=== PATIENT | female | born 1985 | race Caucasian/White ===

== ENCOUNTER 2016-11-09 14:43 | Emergency (ER) | payer OTHER ==
[2016-11-09 15:34] VITALS: BP 129/91
[2016-11-09] MEDS ORDERED: Sodium Chloride 0.9% 10 ML Syringe FLUSH PRN (15:54)
[2016-11-09] MEDS ORDERED: diphenhydrAMINE 50 MG/ML SDV IVPUSH ONE (15:54)
[2016-11-09] MEDS ORDERED: HYDROmorphone 0.5 MG/0.5 ML Syringe IVPUSH ONE (15:54)
[2016-11-09] MEDS ORDERED: Metoclopramide 10 MG/2 ML SDV IVPUSH ONE (15:54)
[2016-11-09] MEDS ORDERED: Sodium Chloride 0.9% 1,000 ML IV SCH (16:00)
--- NOTE | 2016-11-09 17:52 | EDM.PDOC ---
ED HPI HEADACHE COMPLAINT - General Chief Complaint: Headache Stated Complaint: MIGRANE Time Seen by Provider: 11/09/16 15:51 Source of Information: Reports: Patient History Limitations: Reports: No limitations - History of Present Illness INITIAL COMMENTS - FREE TEXT/NARRATIVE: The patient presents with a headache that started this morning when she woke up. She tried some tylenol and it did not help. She has had headaches like this before. But the tylenol is not helping. She has some nausea but no vomiting. She is trying to get . She is unsure if she is now. She has no numbness or weakness. She has no blurred vision or double vision. Timing/Duration: Reports: hour(s): Location: Reports: frontal Quality: Reports: squeezing Severity: Reports: severe Associated Symptoms: Reports: photophobia. 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, Musculoskeletal History: Reports: Other (see below) Other Musculoskeletal History: Ligament repair in ankle Psychiatric History: Reports: Depression Social & Family History - Tobacco Use Smoking Status *Q: Never Smoker - Caffeine Use Caffeine Use: Reports: Coffee - Recreational Drug Use Recreational Drug Use: No - Living Situation & Occupation Living situation: Reports: Occupation: employed ED ROS GENERAL - Review of Systems Review Of Systems: See Below Constitutional: Reports: no symptoms HEENT: Reports: No symptoms Respiratory: Reports: No Symptoms Cardiovascular: Reports: No symptoms Endocrine: Reports: no symptoms GI/Abdominal: Reports: Nausea. Denies: Abdominal pain, Vomiting : Reports: no symptoms Musculoskeletal: Reports: no symptoms Skin: Reports: no symptoms Neurological: Reports: Headache - Physical Exam Exam: See Below Exam Limited By: No limitations General Appearance: alert, no apparent distress Ears: normal external exam Nose: normal inspection Head Exam: atraumatic, normocephalic Neck: normal inspection Respiratory/Chest: no respiratory distress, lungs clear, normal breath sounds Cardiovascular: regular rate, rhythm, no edema, no murmur GI/Abdominal: soft, non tender, no organomegaly, no mass Neuro Exam (Abbreviated): alert, oriented, no motor/sensory deficits Course - Vital Signs Last Recorded V/S: Last Vital Signs Temp 97.0 F 11/09/16 15:32 Pulse 73 11/09/16 15:32 Resp 20 11/09/16 15:32 BP 129/91 H 11/09/16 15:32 Pulse Ox 98 11/09/16 15:32 - Orders/Labs/Meds Orders: Active Orders 24 hr Category Date Time Status Peripheral IV Care [RC] . DIRECTED Care 11/09/16 15:54 Active Sodium Chloride 0.9% [Normal Saline] 1,000 ml Med 11/09/16 16:00 Active IV ASDIRECTED Sodium Chloride 0.9% [Saline Flush] Med 11/09/16 15:54 Active 10 ml FLUSH ASDIRECTED PRN Peripheral IV Insertion Adult [OM.PC] Routine Oth 11/09/16 15:54 Ordered Medication Orders Sodium Chloride (Normal Saline) 1,000 mls @ 150 mls/hr IV ASDIRECTED EBONY Last Admin: 11/09/16 16:34 Dose: 150 mls/hr Sodium Chloride (Saline Flush) 10 ml FLUSH ASDIRECTED PRN PRN Reason: Keep Vein Open Last Admin: 11/09/16 16:36 Dose: 10 ml Labs: Laboratory Tests 11/09/16 Range/Units 16:35 HCG, Qual Negative (NEGATIVE) Meds: Medications Generic Name Dose Route Start Last Admin Trade Name Freq PRN Reason Stop Dose Admin Sodium Chloride 1,000 mls @ 150 mls/hr 11/09/16 16:00 11/09/16 16:34 Normal Saline IV 150 mls/hr ASDIRECTED EBONY Administration Sodium Chloride 10 ml 11/09/16 15:54 11/09/16 16:36 Saline Flush FLUSH 10 ml ASDIRECTED PRN Administration Keep Vein Open Discontinued Medications Generic Name Dose Route Start Last Admin Trade Name Freq PRN Reason Stop Dose Admin Diphenhydramine HCl 50 mg 11/09/16 15:54 11/09/16 16:37 Benadryl IVPUSH 11/09/16 15:55 50 mg ONETIME ONE Administration Hydromorphone HCl 0.5 mg 11/09/16 15:54 11/09/16 16:38 Dilaudid IVPUSH 11/09/16 15:55 0.5 mg ONETIME ONE Administration Metoclopramide HCl 10 mg 11/09/16 15:54 11/09/16 16:35 Reglan IVPUSH 11/09/16 15:55 10 mg ONETIME ONE Administration - Re-Assessments/Exams Free Text/Narrative Re-Assessment/Exam: 11/09/16 17:50 I ordered an IV NS, reglan 10mg IV and some benadryl. Her HCG is negative. She feels better and she would like to go now. Departure - Departure Time of Disposition: 17:55 Disposition: Home, Self-Care 01 Condition: good Clinical Impression: Migraine Referrals: Keri Yi DO [Primary Care Provider] - Forms: ED Department Discharge Additional Instructions: Go home to a quit, dark room and try to get some sleep. Please return if you are worse. - My Orders Last 24 Hours: My Active Orders 11/09/16 15:54 Peripheral IV Care [RC] . DIRECTED Sodium Chloride 0.9% [Saline Flush] 10 ml FLUSH ASDIRECTED PRN Peripheral IV Insertion Adult [OM.PC] Routine 11/09/16 16:00 Sodium Chloride 0.9% [Normal Saline] 1,000 ml IV ASDIRECTED - Assessment/Plan Last 24 Hours: My Active Orders 11/09/16 15:54 Peripheral IV Care [RC] . DIRECTED Sodium Chloride 0.9% [Saline Flush] 10 ml FLUSH ASDIRECTED PRN Peripheral IV Insertion Adult [OM.PC] Routine 11/09/16 16:00 Sodium Chloride 0.9% [Normal Saline] 1,000 ml IV ASDIRECTED
== END 2016-11-09 18:00 | disposition home or self-care (01) ==
LOC: JD.ED 14:43
DX: G43.909 Migraine, unspecified, not intractable, without status migrainosus (principal); F32.9 Major depressive disorder, single episode, unspecified; Z88.2 Allergy status to sulfonamides
CPT/HCPCS: 36415; 84703; 96361; 96374; 96375; 99283; J1170; J1200; J2765; J7040; J7050; 99284

== ENCOUNTER 2017-04-27 18:42 | Emergency (ER) | payer OTHER ==
[2017-04-27 18:55] VITALS: BP 116/70
--- NOTE | 2017-04-27 19:29 | EDM.PDOC ---
ED HPI GENERAL MEDICAL PROBLEM - General Chief Complaint: SENIOR SUSTAINABILITY CONSULTANT Problem Stated Complaint: 11 1/2 WKS /CONTRACTIONS Time Seen by Provider: 04/27/17 18:52 Source of Information: Reports: Patient, Family History Limitations: Reports: No Limitations - History of Present Illness INITIAL COMMENTS - FREE TEXT/NARRATIVE: The patient presents with cramping. She is at 11 weeks 4 days gestation. This cramping started this evening and at one time they were 5 minutes apart. The have gotten further apart since she has been here. Her OB doctor is Dr Chand. She has had 2 ultrasounds so far in her . She denies any spotting, bleeding or discharge. She has some nausea but that is nothing new for this . She has been eating and drinking okay. She denies any dysuria. She has come chills but no fever. Onset: Gradual Duration: Hour(s): Location: Reports: Abdomen, Pelvis Quality: Reports: Other (Cramping) Severity: Moderate Improves with: Reports: None Worsens with: Reports: None Associated Symptoms: Reports: Fever/Chills, Nausea/Vomiting. 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, Musculoskeletal History: Reports: Other (See Below) Other Musculoskeletal History: Ligament repair in ankle Psychiatric History: Reports: Depression Social & Family History - Tobacco Use Smoking Status *Q: Never Smoker - Caffeine Use Caffeine Use: Reports: None - Recreational Drug Use Recreational Drug Use: No - Living Situation & Occupation Living situation: Reports: Occupation: Employed ED ROS GENERAL - Review of Systems Review Of Systems: See Below Constitutional: Reports: Chills HEENT: Reports: No Symptoms Respiratory: Reports: No Symptoms Cardiovascular: Reports: No Symptoms Endocrine: Reports: No Symptoms GI/Abdominal: Reports: Abdominal Pain, Nausea. Denies: Diarrhea, Vomiting : Reports: No Symptoms Musculoskeletal: Reports: No Symptoms ED EXAM - Physical Exam Exam: See Below Exam Limited By: No Limitations General Appearance: Alert, No Apparent Distress Ears: Normal External Exam Nose: Normal Inspection Head: Atraumatic, Normocephalic Neck: Normal Inspection Respiratory/Chest: No Respiratory Distress, Lungs Clear, Normal Breath Sounds Cardiovascular: Regular Rate, Rhythm, No Edema, No Murmur GI/Abdominal Exam: Soft, No Organomegaly, No Mass, Tender (Mild tenderness to the lower abdomen) Course - Vital Signs Last Recorded V/S: Last Vital Signs Temp 98.5 F 04/27/17 18:52 Pulse 95 04/27/17 18:52 Resp 18 04/27/17 18:52 BP 116/70 04/27/17 18:52 Pulse Ox 100 04/27/17 18:52 - Orders/Labs/Meds Labs: Laboratory Tests 04/27/17 04/27/17 04/27/17 Range/Units 19:30 19:30 19:35 WBC 6.62 (3.98-10.04) K/mm3 RBC 4.04 (3.98-5.22) M/mm3 Hgb 11.9 (11.2-15.7) gm/L Hct 35.9 (34.1-44.9) % MCV 88.9 (79.4-94.8) fl MCH 29.5 (25.6-32.2) pg MCHC 33.1 (32.2-35.5) g/dl RDW Std Deviation 43.3 (36.4-46.3) fL Plt Count 223 (182-369) K/mm3 MPV 9.8 (9.4-12.3) fl Neut % (Auto) 60.6 (34.0-71.1) % Lymph % (Auto) 31.1 (19.3-51.7) % [place] % (Auto) 6.5 (4.7-12.5) % Eos % (Auto) 1.4 (0.7-5.8) Baso % (Auto) 0.2 (0.1-1.2) % Neut # (Auto) 4.02 (1.56-6.13) K/mm3 Lymph # (Auto) 2.06 (1.18-3.74) K/mm3 [place] # (Auto) 0.43 H (0.24-0.36) K/mm3 Eos # (Auto) 0.09 (0.04-0.36) K/mm3 Baso # (Auto) 0.01 (0.01-0.08) K/mm3 Sodium 137 (136-145) mEq/L Potassium 4.0 (3.5-5.1) mEq/L Chloride 104 (98-107) mEq/L Carbon Dioxide 28 (21-32) mEq/L Anion Gap 9.0 (5-15) BUN 12 (7-18) mg/dL Creatinine 0.9 (0.55-1.02) mg/dL Est Cr Clr Drug Dosing TNP Estimated GFR (MDRD) > 60 (>60) mL/min BUN/Creatinine Ratio 13.3 L (14-18) Glucose 110 H (74-106) mg/dL Calcium 9.3 (8.5-10.1) mg/dL Total Bilirubin 0.2 (0.2-1.0) mg/dL AST 18 (15-37) U/L ALT 33 (14-59) U/L Alkaline Phosphatase 49 (46-116) U/L Total Protein 6.5 (6.4-8.2) g/dl Albumin 2.9 L (3.4-5.0) g/dl Globulin 3.6 gm/dL Albumin/Globulin Ratio 0.8 L (1-2) Urine Color Yellow (Yellow) Urine Appearance Clear (Clear) Urine pH 6.0 (5.0-8.0) Ur Specific [place] > or = 1.030 (1.005-1.030) Urine Protein Negative (Negative) Urine Glucose (UA) 2+ H (Negative) Urine Ketones 1+ H (Negative) Urine Occult Blood Negative (Negative) Urine Nitrite Negative (Negative) Urine Bilirubin Negative (Negative) Urine Urobilinogen 1.0 (0.2-1.0) Ur Leukocyte Esterase Trace H (Negative) Urine RBC Not seen (0-5) /hpf Urine WBC 0-5 (0-5) /hpf Ur Epithelial Cells 5-10 H (0-5) /hpf Urine Bacteria Moderate H (FEW) /hpf Urine Mucus Few (FEW) /hpf - Re-Assessments/Exams Free Text/Narrative Re-Assessment/Exam: 04/27/17 19:29 I ordered labs and a UA. I did a bedside US and there was good heart tones at 145 and good movement. 04/27/17 20:10 Her CBC and CMP look good. Her UA shows no UTI. She had a few contractions when she was here. I will have her drink more water and follow up with Dr Chand. Departure - Departure Time of Disposition: 20:15 Disposition: Home, Self-Care 01 Condition: Good Clinical Impression: Abdominal cramping Qualifiers: Weeks of gestation: 11 weeks Qualified Code(s): Z3A.11 - 11 weeks gestation of - Discharge Information Referrals: Misty Chand MD [Primary Care Provider] - Forms: ED Department Discharge Additional Instructions: Drink plenty of water. Please return if you have more cramping or any bleeding. Follow up with Dr Chand next week.
== END 2017-04-27 20:21 | disposition home or self-care (01) ==
LOC: JD.ED 18:42
DX: O99.89 Other specified diseases and conditions complicating pregnancy, childbirth and the puerperium (principal); R10.9 Unspecified abdominal pain; Z88.2 Allergy status to sulfonamides; Z79.899 Other long term (current) drug therapy; Z3A.11 11 weeks gestation of pregnancy
CPT/HCPCS: 36415; 80053; 81001; 85025; 99283; 99284

== ENCOUNTER 2017-11-16 00:58 | Inpatient (IN) | payer OTHER ==
[2017-11-16] MEDS ORDERED: Nalbuphine 20 MG/1 ML Amp IVPUSH PRN (03:19)
[2017-11-16] MEDS ORDERED: Sodium Chloride 0.9% 10 ML Syringe FLUSH PRN (03:19)
[2017-11-16] MEDS ORDERED: Oxytocin/Lactated Ringers 10 UNIT/1,000 ML BAG IV SCH ×2 (03:30→09:15)
[2017-11-16] MEDS ORDERED: Ampicillin 2 GM in Sodium Chloride 0.9% 100 ML IV ONE (04:00)
[2017-11-16] MEDS: Lactated Ringers 1,000 ML IV SCH ×3 (04:40→16:43)
[2017-11-16] MEDS: Ampicillin 1 GM in Sodium Chloride 0.9% 100 ML IV SCH ×3 (07:50→16:48)
[2017-11-16] MEDS ORDERED: Bupivacaine 0.25% 10 ML SDV ONE (09:00)
[2017-11-16] MEDS ORDERED: Oxytocin/Lactated Ringers 10 UNIT/1,000 ML BAG IV ONE (09:11)
--- NOTE | 2017-11-16 10:12 | PCM.LDHP ---
L&D History of Present Illness - General Date of Service: 11/16/17 Admit Problem/Dx: Patient Status Order with Admit Dx/Problem 11/16/17 02:17 Patient Status [ADT] Routine 11/16/17 03:20 Patient Status [ADT] Routine Admission Diagnosis/Problem Admission Diagnosis/Problem Source of Information: Patient - History of Present Illness Introduction:: 32 year old female at 40w3d here in labor with painful contractions since midnight and cervical change from 1 cm to 3 cm. 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, Musculoskeletal History: Reports: Arthritis, Other (See Below) Other Musculoskeletal History: Ligament repair in ankle 2006 Psychiatric History: Reports: Anxiety, Depression - Infectious Disease History Infectious Disease History: Reports: Influenza - Past Surgical History HEENT Surgical History: Reports: None Social & Family History - Family History Family Medical History: Noncontributory - Tobacco Use Smoking Status *Q: Former Smoker Years of Tobacco use: 10 Packs/Tins Daily: 1 Used Tobacco, but Quit: Yes Month/Year Tobacco Last Used: 2009 Second Hand Smoke Exposure: No - Caffeine Use Caffeine Use: Reports: Coffee, Soda, Tea Other Caffeine Use: occasional - Recreational Drug Use Recreational Drug Use: No - Living Situation & Occupation Living situation: Reports: Occupation: Employed H&P Review of Systems - Review of Systems: Review Of Systems: See Below General: Reports: No Symptoms HEENT: Reports: No Symptoms Pulmonary: Reports: No Symptoms Cardiovascular: Reports: No Symptoms Gastrointestinal: Reports: No Symptoms Genitourinary: Reports: No Symptoms Musculoskeletal: Reports: No Symptoms Skin: Reports: No Symptoms Psychiatric: Reports: No Symptoms Neurological: Reports: No Symptoms Hematologic/Lymphatic: Reports: No Symptoms Immunologic: Reports: No Symptoms L&D Exam - Exam Exam: See Below - Vital Signs Vital Signs: Last Vital Signs Temp 36.9 C 11/16/17 02:16 Pulse 95 11/16/17 02:16 Resp 15 11/16/17 02:16 BP 127/83 11/16/17 02:16 Pulse Ox 100 11/16/17 02:16 Weight: 129.274 kg - OB Specific Contraction Intensity: Moderate Movement: Active Heart Rate (FHR) Variability: Moderate (6-25 bmp) Presentation: Vertex - Yi Score Yi Score Cervix Position: Posterior Yi Score Consistency: Medium Yi Score Effacement: 31-50% Yi Score Dilation: 3-4 cm Yi Score Infant's Station: -2 Yi Score Total: 5 - Exam General: Alert, Oriented HEENT: PERRLA, Conjunctiva Clear, EACs Clear, EOMI, Hearing Intact, Mucosa Moist & [place], Nares Patent, Normal Nasal Septum, Posterior Pharynx Clear, TMs Clear Neck: Supple, Trachea Midline Lungs: Clear to Auscultation, Normal Respiratory Effort Cardiovascular: Regular Rate, Regular Rhythm GI/Abdominal Exam: Normal Bowel Sounds, Soft, Non-Tender, No Organomegaly, No Distention, No Abnormal Bruit, No Mass, Pelvis Stable Genitourinary: Normal external exam, Normal bimanual exam, Normal speculum exam Back Exam: Normal Inspection, Full Range of Motion Extremities: Normal Inspection, Normal Range of Motion, Non-Tender, No Pedal Edema, Normal Capillary Refill Skin: Warm, Dry, Intact Neurological: Cranial Nerves Intact, Reflexes Equal Bilateral Psychiatric: Alert, Normal Affect, Normal Mood - Patient Data Lab Results Last 24 hrs: Laboratory Results - last 24 hr 11/16/17 Range/Units 03:45 WBC 8.28 (3.98-10.04) K/mm3 RBC 4.07 (3.98-5.22) M/mm3 Hgb 10.6 L (11.2-15.7) gm/L Hct 33.7 L (34.1-44.9) % MCV 82.8 (79.4-94.8) fl MCH 26.0 (25.6-32.2) pg MCHC 31.5 L (32.2-35.5) g/dl RDW Std Deviation 48.5 H (36.4-46.3) fL Plt Count 241 (182-369) K/mm3 MPV 11.1 (9.4-12.3) fl Neut % (Auto) 58.0 (34.0-71.1) % Lymph % (Auto) 34.7 (19.3-51.7) % [place] % (Auto) 6.2 (4.7-12.5) % Eos % (Auto) 0.8 (0.7-5.8) Baso % (Auto) 0.1 (0.1-1.2) % Neut # (Auto) 4.80 (1.56-6.13) K/mm3 Lymph # (Auto) 2.87 (1.18-3.74) K/mm3 [place] # (Auto) 0.51 H (0.24-0.36) K/mm3 Eos # (Auto) 0.07 (0.04-0.36) K/mm3 Baso # (Auto) 0.01 (0.01-0.08) K/mm3 Result Diagrams: 11/16/17 03:45 Problem List Initiated/Reviewed/Updated: Yes Orders Last 24hrs: Active Orders 24 hr Category Date Time Status Patient Status [ADT] Routine ADT 11/16/17 03:20 Active Activity as Tolerated [RC] PFP Care 11/16/17 03:19 Active Communication Order [RC] ASDIRECTED Care 11/16/17 03:19 Active Heart Tones [RC] ASDIRECTED Care 11/16/17 03:19 Active Monitoring [RC] CONTINUOUS Care 11/16/17 02:18 Active Notify Provider [RC] PFP Care 11/16/17 03:19 Active Notify Provider [RC] PRN Care 11/16/17 03:19 Active Peripheral IV Care [RC] . DIRECTED Care 11/16/17 03:19 Active Vaginal Exam [RC] PRN Care 11/16/17 02:18 Active Vital Signs [RC] PER UNIT ROUTINE Care 11/16/17 02:17 Active Vital Signs [RC] PER UNIT ROUTINE Care 11/16/17 03:19 Active Regular Diet [DIET] Diet 11/16/17 Breakfast Active Ampicillin 1 gm Med 11/16/17 08:00 Active Sodium Chloride 0.9% [Normal Saline] 100 ml IV Q4H Lactated Ringers [Ringers, Lactated] 1,000 ml Med 11/16/17 03:30 Active IV ASDIRECTED Nalbuphine [Nubain] Med 11/16/17 03:19 Active 10 mg IVPUSH Q2H PRN Oxytocin/Lactated Ringers [Pitocin in LR 10 Units/1,000 Med 11/16/17 03:30 Active ML] 10 unit in 1,000 ml IV .CONTINUOUS Oxytocin/Lactated Ringers [Pitocin in LR 10 Units/1,000 Med 11/16/17 09:15 Active ML] 10 unit in 1,000 ml IV TITRATE Sodium Chloride 0.9% [Saline Flush] Med 11/16/17 03:19 Active 10 ml FLUSH ASDIRECTED PRN Electronic Heart Tones Ext w TOCO [WOMSER] Oth 11/16/17 03:19 Ordered Routine Electronic Heart Tones Internal [WOMSER] Per Unit Oth 11/16/17 03:19 Ordered Routine Peripheral IV Insertion Adult [OM.PC] Routine Oth 11/16/17 03:19 Ordered Resuscitation Status Routine Resus Stat 11/16/17 03:19 Ordered Medication Orders Lactated Ringer's (Ringers, Lactated) 1,000 mls @ 100 mls/hr IV ASDIRECTED EBONY Last Infusion: 11/16/17 07:51 Dose: 100 mls/hr Admin: 11/16/17 04:40 Dose: 100 mls/hr Oxytocin/Lactated Ringer's (Pitocin In Lr 10 Units/1,000 Ml) 10 unit in 1,000 mls @ 500 mls/hr IV .CONTINUOUS EBONY Ampicillin Sodium 1 gm/ Sodium (Chloride) 100 mls @ 200 mls/hr IV Q4H EBONY Last Admin: 11/16/17 07:50 Dose: 200 mls/hr Oxytocin/Lactated Ringer's (Pitocin In Lr 10 Units/1,000 Ml) 10 unit in 1,000 mls @ 12 mls/hr IV TITRATE EBONY; 2 MUNITS/MIN PRN Reason: Protocol Last Admin: 11/16/17 09:23 Dose: 2 munits/min, 12 mls/hr Nalbuphine HCl (Nubain) 10 mg IVPUSH Q2H PRN PRN Reason: Pain (moderate 4-6) Sodium Chloride (Saline Flush) 10 ml FLUSH ASDIRECTED PRN PRN Reason: Keep Vein Open Assessment/Plan Comment:: Term labor. AROM clear fluid. Antibiotics for GBS initiated by Dr. Walls over night. Pitocin initiated.
[2017-11-16] MEDS ORDERED: fentaNYL 100 MCG/2 ML SDV ONE (12:14)
[2017-11-16] MEDS ORDERED: Ondansetron 4 MG/2 ML SDV IVPUSH PRN (12:14)
[2017-11-16] MEDS ORDERED: fentaNYL 100 MCG/2 ML SDV IVPUSH PRN (12:14)
[2017-11-16] MEDS ORDERED: Bupivacaine/fentaNYL/NS 100 ML Bag EPIDUR SCH (12:15)
--- NOTE | 2017-11-16 12:23 | PCM.PREANE ---
Preanesthetic Assessment - Procedure Proposed Procedure: Continuous Labor Epidural - Anesthesia/Transfusion/Family Hx Anesthesia History: Prior Anesthesia Without Reaction Family History of Anesthesia Reaction: No Transfusion History: No Prior Transfusion(s) Intubation History: Unknown - Review of Systems General: No Symptoms Pulmonary: No Symptoms Cardiovascular: No Symptoms Gastrointestinal: No Symptoms, Other (GERD ) Neurological: No Symptoms Other: Reports: None - Physical Assessment NPO Status Date: 11/16/17 NPO Status Time: 08:30 Pulse: 92 O2 Sat by Pulse Oximetry: 100 Respiratory Rate: 15 Blood Pressure: 141/76 Vital Signs: Last Vital Signs Temp 36.9 C 11/16/17 02:16 Pulse 95 11/16/17 02:16 Resp 15 11/16/17 02:16 BP 127/83 11/16/17 02:16 Pulse Ox 100 11/16/17 02:16 Height: 1.68 m Weight: 129.274 kg ASA Class: 2 Mental Status: Alert & Oriented x3 Dentition: Reports: Normal Dentition Thyro-Mental Finger Breadths: 3 Mouth Opening Finger Breadths: 5 ROM/Head Extension: Full Lungs: Clear to Auscultation, Normal Respiratory Effort Cardiovascular: Regular Rate, Regular Rhythm - Lab Values: Laboratory Last Values WBC 8.28 K/mm3 (3.98-10.04) 11/16/17 03:45 RBC 4.07 M/mm3 (3.98-5.22) 11/16/17 03:45 Hgb 10.6 gm/L (11.2-15.7) L 11/16/17 03:45 Hct 33.7 % (34.1-44.9) L 11/16/17 03:45 MCV 82.8 fl (79.4-94.8) 11/16/17 03:45 MCH 26.0 pg (25.6-32.2) 11/16/17 03:45 MCHC 31.5 g/dl (32.2-35.5) L 11/16/17 03:45 RDW Std Deviation 48.5 fL (36.4-46.3) H 11/16/17 03:45 Plt Count 241 K/mm3 (182-369) 11/16/17 03:45 MPV 11.1 fl (9.4-12.3) 11/16/17 03:45 Neut % (Auto) 58.0 % (34.0-71.1) 11/16/17 03:45 Lymph % (Auto) 34.7 % (19.3-51.7) 11/16/17 03:45 [place] % (Auto) 6.2 % (4.7-12.5) 11/16/17 03:45 Eos % (Auto) 0.8 (0.7-5.8) 11/16/17 03:45 Baso % (Auto) 0.1 % (0.1-1.2) 11/16/17 03:45 Neut # (Auto) 4.80 K/mm3 (1.56-6.13) 11/16/17 03:45 Lymph # (Auto) 2.87 K/mm3 (1.18-3.74) 11/16/17 03:45 [place] # (Auto) 0.51 K/mm3 (0.24-0.36) H 11/16/17 03:45 Eos # (Auto) 0.07 K/mm3 (0.04-0.36) 11/16/17 03:45 Baso # (Auto) 0.01 K/mm3 (0.01-0.08) 11/16/17 03:45 - Allergies Allergies/Adverse Reactions: Allergies Allergy/AdvReac Type Severity Reaction Status Date / Time Sulfa (Sulfonamide Allergy Nausea Verified 04/27/17 18:51 Antibiotics) oral contraceptive Allergy Headache Uncoded 04/27/17 18:52 - Blood Blood Available: No - Acknowledgements Anesthesia Type Planned: Epidural Pt an Appropriate Candidate for the Planned Anesthesia: Yes Alternatives and Risks of Anesthesia Discussed w Pt/Guardian: Yes Pt/Guardian Understands and Agrees with Anesthesia Plan: Yes PreAnesthesia Questionnaire - Past Health History Medical/Surgical History: Denies Medical/Surgical History HEENT History: Reports: None 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, LMP (Approximate): Musculoskeletal History: Reports: Arthritis, Other (See Below) Other Musculoskeletal History: Ligament repair in ankle 2007 Psychiatric History: Reports: Anxiety, Depression - Infectious Disease History Infectious Disease History: Reports: Influenza - Past Surgical History HEENT Surgical History: Reports: None - SUBSTANCE USE Smoking Status *Q: Former Smoker Tobacco Use Within Last Twelve Months: No Second Hand Smoke Exposure: No Recreational Drug Use History: No - HOME MEDS Home Medications: Home Meds Ondansetron [Zofran ODT] 4 mg PO DAILY 04/27/17 [History] - CURRENT (IN HOUSE) MEDS Current Meds: Current Medications Lactated Ringer's (Ringers, Lactated) 1,000 mls @ 100 mls/hr IV ASDIRECTED EBONY Last Infusion: 11/16/17 07:51 Dose: 100 mls/hr Oxytocin/Lactated Ringer's (Pitocin In Lr 10 Units/1,000 Ml) 10 unit in 1,000 mls @ 500 mls/hr IV .CONTINUOUS EBONY Ampicillin Sodium 1 gm/ Sodium (Chloride) 100 mls @ 200 mls/hr IV Q4H EBONY Last Admin: 11/16/17 07:50 Dose: 200 mls/hr Oxytocin/Lactated Ringer's (Pitocin In Lr 10 Units/1,000 Ml) 10 unit in 1,000 mls @ 12 mls/hr IV TITRATE EBONY; 2 MUNITS/MIN PRN Reason: Protocol Last Titration: 11/16/17 11:15 Dose: 0 munits/min, 0 mls/hr Nalbuphine HCl (Nubain) 10 mg IVPUSH Q2H PRN PRN Reason: Pain (moderate 4-6) Sodium Chloride (Saline Flush) 10 ml FLUSH ASDIRECTED PRN PRN Reason: Keep Vein Open Discontinued Medications Fentanyl (Sublimaze) Confirm Administered Dose 100 mcg .ROUTE .STK-MED ONE Stop: 11/16/17 12:15 Ampicillin Sodium 2 gm/ Sodium (Chloride) 100 mls @ 200 mls/hr IV ONETIME ONE Stop: 11/16/17 04:29 Last Admin: 11/16/17 04:45 Dose: 200 mls/hr Oxytocin/Lactated Ringer's (Pitocin In Lr 10 Units/1,000 Ml) Confirm Administered Dose 10 unit in 1,000 mls @ as directed IV .STK-MED ONE Stop: 11/16/17 09:12
[2017-11-16] MEDS ORDERED: Lanolin 100% Cream 7 GM Tube TOP PRN (21:15)
[2017-11-16] MEDS ORDERED: Benzocaine/Menthol 20%-0.5% Spray 56 GM Canister TOP PRN (21:15)
[2017-11-16] MEDS ORDERED: Witch Hazel Medicated Pads 100/Jar TOP PRN (21:15)
[2017-11-16] MEDS ORDERED: Docusate Sodium 100 MG Cap PO PRN (21:15)
[2017-11-17] MEDS: Ibuprofen 600 MG Tab PO PRN ×2 (00:17→14:29)
[2017-11-17] MEDS ORDERED: Calcium Carbonate 500 MG Tab.Chew PO PRN (12:39)
[2017-11-18] MEDS: Ibuprofen 600 MG Tab PO PRN (04:25)
[2017-11-18 04:48] VITALS: BP 110/77
--- NOTE | 2017-11-18 10:30 | PCM.DCSUM1 ---
Discharge Summary - Hospital Course Brief History: Admitted in labor - Discharge Data Discharge Date: 11/18/17 Discharge Disposition: Home, Self-Care 01 Condition: Good - Patient Summary/Data Operative Procedure(s) Performed: , epidural - Patient Instructions Diet: Usual Diet as Tolerated Activity: No Strenuous Activities Driving: May Drive Today Showering/Bathing: May Shower Notify Provider of: Fever, Increased Pain, Swelling and Redness, Drainage, Nausea and/or Vomiting - Discharge Plan Home Medications: Home Meds Ondansetron [Zofran ODT] 4 mg PO DAILY 04/27/17 [History] Patient Handouts: Home Care Instructions for Mom, Eating Plan for Women Referrals: Misty Chand MD [Physician] - (2 weeks) - General Info Date of Service: 11/18/17 - Review of Systems General: Reports: No Symptoms HEENT: Reports: No Symptoms Pulmonary: Reports: No Symptoms Cardiovascular: Reports: No Symptoms Gastrointestinal: Reports: No Symptoms Genitourinary: Reports: No Symptoms Musculoskeletal: Reports: No Symptoms Skin: Reports: No Symptoms Neurological: Reports: No Symptoms Psychiatric: Reports: No Symptoms - Patient Data Vitals - Most Recent: Last Vital Signs Temp 37.1 C 11/18/17 04:26 Pulse 71 11/18/17 04:26 Resp 18 11/18/17 04:26 BP 110/77 11/18/17 04:26 Pulse Ox 98 11/18/17 04:26 Weight - Most Recent: 129.274 kg I&O - Last 24 hours: Intake & Output 11/17/17 11/18/17 11/18/17 22:59 06:59 14:59 Intake Total 440 Balance 440 Med Orders - Current: Current Medications Benzocaine/Menthol (Dermoplast Pain Relief [employer]) 0 gm TOP ASDIRECTED PRN PRN Reason: Perineal Comfort Measure Last Admin: 11/17/17 00:14 Dose: 1 spray Calcium Carbonate/Glycine (Tums) 1,000 mg PO Q2H PRN PRN Reason: Indigestion Last Admin: 11/17/17 13:05 Dose: 1,000 mg Docusate Sodium (Colace) 100 mg PO BID PRN PRN Reason: Constipation Last Admin: 11/17/17 14:30 Dose: 100 mg Emollient Ointment (Lansinoh Hpa) 0 gm TOP ASDIRECTED PRN PRN Reason: Sore Nipples Last Admin: 11/17/17 19:41 Dose: 1 applic Ibuprofen (Motrin) 600 mg PO Q6H PRN PRN Reason: Mild pain or fever Last Admin: 11/18/17 04:25 Dose: 600 mg Witch Malka (Tucks) 1 pad TOP ASDIRECTED PRN PRN Reason: Hemorrhoid pain Last Admin: 11/17/17 00:14 Dose: 1 pad Discontinued Medications Bupivacaine HCl (Sensorcaine-Mpf 0.25%) 10 ml .ROUTE .STK-MED ONE Stop: 11/16/17 09:01 Fentanyl (Sublimaze) Confirm Administered Dose 100 mcg .ROUTE .STK-MED ONE Stop: 11/16/17 12:15 Last Admin: 11/16/17 13:22 Dose: 100 mcg Fentanyl (Sublimaze) 50 mcg IVPUSH Q5M PRN PRN Reason: Pain Fentanyl/Bupivacaine HCl (Fentanyl/Bupivacaine/Ns 2 Mcg-0.125% 100 Ml) 100 ml EPIDUR ASDIRECTED EBONY Last Admin: 11/16/17 13:22 Dose: 100 ml Lactated Ringer's (Ringers, Lactated) 1,000 mls @ 100 mls/hr IV ASDIRECTED [facility] Last Admin: 11/16/17 16:43 Dose: 100 mls/hr Oxytocin/Lactated Ringer's (Pitocin In Lr 10 Units/1,000 Ml) 10 unit in 1,000 mls @ 500 mls/hr IV .CONTINUOUS EBONY Ampicillin Sodium 2 gm/ Sodium (Chloride) 100 mls @ 200 mls/hr IV ONETIME ONE Stop: 11/16/17 04:29 Last Admin: 11/16/17 04:45 Dose: 200 mls/hr Ampicillin Sodium 1 gm/ Sodium (Chloride) 100 mls @ 200 mls/hr IV Q4H EBONY Last Admin: 11/16/17 16:48 Dose: 200 mls/hr Oxytocin/Lactated Ringer's (Pitocin In Lr 10 Units/1,000 Ml) 10 unit in 1,000 mls @ 12 mls/hr IV TITRATE EBONY; Protocol Last Titration: 11/16/17 18:47 Dose: 10 munits/min, 60 mls/hr Oxytocin/Lactated Ringer's (Pitocin In Lr 10 Units/1,000 Ml) Confirm Administered Dose 10 unit in 1,000 mls @ as directed IV .STK-MED ONE Stop: 11/16/17 09:12 Last Admin: 11/16/17 16:19 Dose: Not Given Nalbuphine HCl (Nubain) 10 mg IVPUSH Q2H PRN PRN Reason: Pain (moderate 4-6) Ondansetron HCl (Zofran) 4 mg IVPUSH ONETIME PRN PRN Reason: Nausea/Vomiting Sodium Chloride (Saline Flush) 10 ml FLUSH ASDIRECTED PRN PRN Reason: Keep Vein Open - Exam General: Reports: Alert, Oriented HEENT: Reports: Pupils Equal, Pupils Reactive, EOMI, Mucous Membr. Moist/[place] Neck: Reports: Supple Lungs: Reports: Clear to Auscultation, Normal Respiratory Effort Cardiovascular: Reports: Regular Rate, Regular Rhythm GI/Abdominal Exam: Normal Bowel Sounds, Soft, Non-Tender, No Organomegaly, No Distention, No Abnormal Bruit, No Mass, Pelvis Stable Back Exam: Reports: Normal Inspection, Full Range of Motion Extremities: Normal Inspection, Normal Range of Motion, Non-Tender, No Pedal Edema, Normal Capillary Refill Skin: Reports: Warm, Dry, Intact Wound/Incisions: Reports: Healing Well Neurological: Reports: No New Focal Deficit Psy/Mental Status: Reports: Alert, Normal Affect, Normal Mood
== END 2017-11-18 10:45 | disposition home or self-care (01) | DRG 775 ==
LOC: JD.OBCHECK 00:58 → JD.OB 01:02 → JD.OBCHECK 03:33 → OBSVTOIN 20:36 → JD.OB 20:36
PROVIDERS: ADMIT Obstetrics & Gynecology; ATTEND Obstetrics & Gynecology
PROC: 10E0XZZ Delivery of Products of Conception, External Approach (ICD-10-PCS; principal; 2017-11-16)
PROC: 10907ZC Drainage of Amniotic Fluid, Therapeutic from Products of Conception, Via Natural or Artificial Opening (ICD-10-PCS; 2017-11-16)
PROC: 0HQ9XZZ Repair Perineum Skin, External Approach (ICD-10-PCS; 2017-11-16)
PROC: 00HU33Z Insertion of Infusion Device into Spinal Canal, Percutaneous Approach (ICD-10-PCS; 2017-11-16)
PROC: 3E0R3BZ Introduction of Anesthetic Agent into Spinal Canal, Percutaneous Approach (ICD-10-PCS; 2017-11-16)
DX: O99.824 Streptococcus B carrier state complicating childbirth (principal); Z3A.40 40 weeks gestation of pregnancy; Z37.0 Single live birth; O70.0 First degree perineal laceration during delivery; Z88.2 Allergy status to sulfonamides; Z87.891 Personal history of nicotine dependence; Z88.8 Allergy status to other drugs, medicaments and biological substances
CPT/HCPCS: 01967; 36415; 51702; 59025; 59300; 59409; 85025; A9270-GY; J0290; J2590; J3010; J7030; J7120

== ENCOUNTER 2017-11-24 14:34 | Emergency (ER) | payer OTHER ==
--- NOTE | 2017-11-24 15:07 | EDM.PDOC ---
ED HPI GENERAL MEDICAL PROBLEM - General Chief Complaint: Upper Extremity Injury/Pain Stated Complaint: LEG ISSUES POST DELIVERY Time Seen by Provider: 11/24/17 14:55 Source of Information: Reports: Patient History Limitations: Reports: No Limitations - History of Present Illness INITIAL COMMENTS - FREE TEXT/NARRATIVE: 32-year-old female presents for evaluation and treatment of right leg pain. Patient reports she's been experiencing pain in her right calf for the last 2 days. Reports associated stated symptoms of numbness and tingling. No swelling, erythema or bruising. She denies any chest pain or shortness of breath. Reports leg pain is worse with dorsiflexion. Patient is 8 days . No history of any blood clots or any known clotting disorders. Patient was seen at the [place] [facility] but was sent over to us to rule out a blood clot. Duration: Day(s): (2) Location: Reports: Lower Extremity, Right Right Lower Leg Pain Score (Numeric/FACES): 3 - Related Data Allergies Allergy/AdvReac Type Severity Reaction Status Date / Time Sulfa (Sulfonamide Allergy Nausea Verified 11/24/17 17:00 Antibiotics) oral contraceptive Allergy Headache Uncoded 04/27/17 18:52 Home Meds: Home Meds . 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: Polycystic Ovaries, Musculoskeletal History: Reports: Arthritis, Other (See Below) Other Musculoskeletal History: Ligament repair in ankle 2006 Psychiatric History: Reports: Anxiety, Depression - Infectious Disease History Infectious Disease History: Reports: Influenza - Past Surgical History HEENT Surgical History: Reports: None Social & Family History - Family History Family Medical History: Noncontributory - Tobacco Use Smoking Status *Q: Never Smoker Years of Tobacco use: 10 Packs/Tins Daily: 1 Used Tobacco, but Quit: Yes Month/Year Tobacco Last Used: 2009 Second Hand Smoke Exposure: No - Caffeine Use Caffeine Use: Reports: Coffee, Soda, Tea Other Caffeine Use: occasional - Recreational Drug Use Recreational Drug Use: No - Living Situation & Occupation Living situation: Reports: Occupation: Employed Review of Systems - Review of Systems Review Of Systems: See Below Cardiovascular: Denies: Chest Pain GI/Abdominal: Denies: Abdominal Pain Musculoskeletal: Reports: Leg Pain (right calf), Other (no leg swelling) Skin: Denies: Bruising, Erythema Neurological: Reports: Numbness (right leg), Tingling (right leg) ED EXAM, GENERAL - Physical Exam Exam: See Below Exam Limited By: No Limitations General Appearance: Alert, WD/WN, No Apparent Distress Respiratory/Chest: No Respiratory Distress, Lungs Clear, Normal Breath Sounds Cardiovascular: Normal Peripheral Pulses, Regular Rate, Rhythm, No Murmur Peripheral Pulses: 2+: Posterior Tibial (L), Posterior Tibial (R), Dorsalis Pedis (L), Dorsalis Pedis (R) Extremities: Normal Inspection, Normal Range of Motion, Normal Capillary Refill , Julian's Sign (right), Other (minor ) Neurological: Alert, Oriented, Normal Cognition Psychiatric: Normal Affect, Normal Mood Skin Exam: Warm, Dry, Normal Color. No: Ecchymosis, Erythema, Increased Warmth Course - Vital Signs Last Recorded V/S: Last Vital Signs Temp 36.8 C 11/24/17 14:45 Pulse 68 11/24/17 17:22 Resp 18 11/24/17 17:22 BP 120/73 11/24/17 17:22 Pulse Ox 99 11/24/17 17:22 - Radiology Interpretation Free Text/Narrative:: Right lower extremity deep venous ultrasound: Duplex and color flow imaging was obtained of the right common femoral, proximal greater saphenous, superficial femoral, popliteal, posterior tibial and peroneal veins. Left common femoral vein was also evaluated. Comparison: No previous study. Findings: Right peroneal vein not seen to allow for evaluation by compression. Peroneal veins shows normal phasic flow and augmentation. Other veins show normal phasic flow, augmentation and compression. Impression: 1. Findings felt to be incidental as noted above. 2. No evidence of deep venous thrombosis is seen within the right lower extremity or within the left common femoral vein. - Re-Assessments/Exams Free Text/Narrative Re-Assessment/Exam: 11/24/17 16:49 Patient was offered pain medication upon arrival but declined. I reviewed the ultrasound report with the patient. Likely musculoskeletal in origin. Will discharge him home at this time. Discharge instructions as documented. Departure - Departure Time of Disposition: 16:50 Disposition: Home, Self-Care 01 Condition: Good Clinical Impression: Leg pain, Muscle spasm - Discharge Information Instructions: Muscle Cramps and Spasms, [id number] Referrals: Keri Yi DO [Primary Care Provider] - Forms: ED Department Discharge Additional Instructions: [id number] Tylenol or Motrin as needed for pain they. Recommend using heat to the sore area for additional pain relief. Expect to ahve discomfort for the next week. If your symptoms persist beyond one to 2 weeks follow-up with your primary care provider. Please return to the ER if your symptoms change or worsen.
--- NOTE | 2017-11-24 16:16 | US ---
Right lower extremity deep venous ultrasound: Duplex and color flow imaging was obtained of the right common femoral, proximal greater saphenous, superficial femoral, popliteal, posterior tibial and peroneal veins. Left common femoral vein was also evaluated. Comparison: No previous study. Findings: Right peroneal vein not seen to allow for evaluation by compression. Peroneal veins shows normal phasic flow and augmentation. Other veins show normal phasic flow, augmentation and compression. Impression: 1. Findings felt to be incidental as noted above. 2. No evidence of deep venous thrombosis is seen within the right lower extremity or within the left common femoral vein. Diagnostic code #1
[2017-11-24 17:24] VITALS: BP 120/73
== END 2017-11-24 17:24 | disposition home or self-care (01) ==
LOC: JD.ED 14:34
DX: O90.89 Other complications of the puerperium, not elsewhere classified (principal); M62.838 Other muscle spasm; M79.604 Pain in right leg; Z88.2 Allergy status to sulfonamides; Z87.891 Personal history of nicotine dependence
CPT/HCPCS: 93971-26-RT; 93971-RT; 99283; 99284-25

== ENCOUNTER 2019-05-11 16:38 | Emergency (ER) | payer OTHER ==
[2019-05-11 17:03] VITALS: BP 130/90; PULSE 80
[2019-05-11] MEDS ORDERED: Metoclopramide 10 MG/2 ML SDV IVPUSH ONE (17:16)
[2019-05-11] MEDS ORDERED: Sodium Chloride 0.9% 10 ML Syringe FLUSH PRN (17:16)
[2019-05-11] MEDS ORDERED: diphenhydrAMINE 50 MG/ML SDV IVPUSH ONE (17:16)
[2019-05-11] MEDS ORDERED: Sodium Chloride 0.9% 1,000 ML IV SCH (17:30)
[2019-05-11] MEDS ORDERED: Ketorolac 30 MG/ML SDV IVPUSH SCH (17:30)
--- NOTE | 2019-05-11 18:56 | EDM.PDOC ---
ED HPI GENERAL MEDICAL PROBLEM - General Chief Complaint: Headache Stated Complaint: MIGRAINE Time Seen by Provider: 05/11/19 17:06 Source of Information: Reports: Patient, RN Notes Reviewed - History of Present Illness INITIAL COMMENTS - FREE TEXT/NARRATIVE: 33-year-old female with R sided headache that started today about 6 hours ago. The headache has been getting progressively more severe this afternoon. she has had migraine headaches in the past but has not had one for several years. this one does feel similar. She's not been ill in any way.She has experienced some nausea, flashing lights and photophobia. The headache is pounding and throbbing. No neck or back pain. Peripheral symptoms. 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 Ovaries, Musculoskeletal History: Reports: Arthritis, Other (See Below) Other Musculoskeletal History: Ligament repair in ankle 2006 Psychiatric History: Reports: Anxiety, Depression, PTSD - Infectious Disease History Infectious Disease History: Reports: Influenza - Past Surgical History HEENT Surgical History: Reports: None Social & Family History - Family History Family Medical History: Noncontributory - Tobacco Use Smoking Status *Q: Current Every Day Smoker Years of Tobacco use: 1 Packs/Tins Daily: 1 - Caffeine Use Caffeine Use: Reports: Coffee Other Caffeine Use: occasional - Recreational Drug Use Recreational Drug Use: Yes Drug Use in Last 12 Months: Yes Recreational Drug Type: Reports: Marijuana/Hashish Recreational Drug Use Frequency: Weekly - Living Situation & Occupation Living situation: Reports: Occupation: Employed ED ROS GENERAL - Review of Systems Review Of Systems: See Below Constitutional: Denies: Fever, Chills, Diaphoresis HEENT: Denies: Ear Pain, Rhinitis, Sinus Problem, Throat Pain Respiratory: Denies: Shortness of Breath Cardiovascular: Denies: Chest Pain GI/Abdominal: Reports: Nausea. Denies: Abdominal Pain, Vomiting Musculoskeletal: Denies: Neck Pain, Arm Pain, Back Pain Skin: Reports: No Symptoms Neurological: Reports: Headache. Denies: Numbness, Tingling, Trouble Speaking, Difficulty Walking, Weakness - Physical Exam Exam: See Below General Appearance: Alert, Moderate Distress Eye Exam: Bilateral Eye: PERRL Throat/Mouth: Normal Inspection, Normal Oropharynx Head Exam: Atraumatic. No: Facial Swelling, Facial Tenderness Neck: Supple Respiratory/Chest: No Respiratory Distress, Lungs Clear, Normal Breath Sounds, Chest Non-Tender Cardiovascular: Regular Rate, Rhythm Neuro Exam (Abbreviated): Alert, Oriented, No Motor/Sensory Deficits Skin Exam: Warm, Dry, Normal Color, No Rash Course - Vital Signs Last Recorded V/S: Last Vital Signs Temp 98 F 05/11/19 16:58 Pulse 80 05/11/19 16:58 Resp 18 05/11/19 16:58 BP 130/90 05/11/19 16:58 Pulse Ox 98 05/11/19 16:58 - Orders/Labs/Meds Orders: Active Orders 24 hr Category Date Time Status Peripheral IV Care [RC] . DIRECTED Care 05/11/19 17:17 Active Peripheral IV Insertion Adult [OM.PC] Stat Oth 05/11/19 17:16 Ordered Meds: Medications Discontinued Medications Generic Name Dose Route Start Last Admin Trade Name Jeffrey PRN Reason Stop Dose Admin Diphenhydramine HCl 25 mg 05/11/19 17:16 05/11/19 17:36 Benadryl IVPUSH 05/11/19 17:17 25 mg ONETIME ONE Administration Sodium Chloride 1,000 mls @ 999 mls/hr 05/11/19 17:30 05/11/19 17:35 Normal Saline IV 999 mls/hr ONETIME EBONY Administration Ketorolac Tromethamine 30 mg 05/11/19 17:30 05/11/19 17:41 Toradol IVPUSH 30 mg ONETIME EBONY Administration Metoclopramide HCl 10 mg 05/11/19 17:16 05/11/19 17:45 Reglan IVPUSH 05/11/19 17:17 10 mg ONETIME ONE Administration Sodium Chloride 10 ml 05/11/19 17:16 05/11/19 17:38 Saline Flush FLUSH 10 ml ASDIRECTED PRN Administration Keep Vein Open - Re-Assessments/Exams Free Text/Narrative Re-Assessment/Exam: 05/12/19 15:38 good relief of HALL after IV meds and fluid Departure - Departure Time of Disposition: 18:55 Disposition: Home, Self-Care 01 Condition: Fair Clinical Impression: Migraine - Discharge Information Instructions: Migraine Headache Referrals: Karissa Dailey MD [Primary Care Provider] - Forms: ED Department Discharge Additional Instructions: Rest, do not drive until morning due to sedative medications given, you may continue to take Tylenol alternating with ibuprofen if needed for further headache. Follow up clinic if not much better by tomorrow as expected. Return to ED as needed if symptoms worsening in any way. - My Orders Last 24 Hours: My Active Orders 05/11/19 17:16 Peripheral IV Insertion Adult [OM.PC] Stat 05/11/19 17:17 Peripheral IV Care [RC] . DIRECTED - Assessment/Plan Last 24 Hours: My Active Orders 05/11/19 17:16 Peripheral IV Insertion Adult [OM.PC] Stat 05/11/19 17:17 Peripheral IV Care [RC] . DIRECTED
== END 2019-05-11 19:02 | disposition home or self-care (01) ==
LOC: JD.ED 16:38
DX: G43.909 Migraine, unspecified, not intractable, without status migrainosus (principal); F41.9 Anxiety disorder, unspecified; F32.9 Major depressive disorder, single episode, unspecified; F17.210 Nicotine dependence, cigarettes, uncomplicated; Z88.2 Allergy status to sulfonamides; Z88.8 Allergy status to other drugs, medicaments and biological substances; Z79.899 Other long term (current) drug therapy
CPT/HCPCS: 96361; 96374; 96375; 99283; J1200; J1885; J2765; J7040; 99284

== ENCOUNTER 2020-03-13 07:29 | Emergency (ER) | payer OTHER ==
[2020-03-13 07:40] VITALS: BP 123/88; PULSE 81
[2020-03-13] MEDS ORDERED: Metoclopramide 10 MG/2 ML SDV IVPUSH ONE (07:51)
[2020-03-13] MEDS ORDERED: diphenhydrAMINE 50 MG/ML SDV IVPUSH ONE (07:51)
[2020-03-13] MEDS ORDERED: HYDROmorphone 0.5 MG/0.5 ML Syringe IVPUSH ONE (07:51)
--- NOTE | 2020-03-13 07:57 | EDM.PDOC ---
ED HPI GENERAL MEDICAL PROBLEM - General Chief Complaint: Headache Stated Complaint: HEADACHE Time Seen by Provider: 03/13/20 07:42 Source of Information: Reports: Patient History Limitations: Reports: No Limitations - History of Present Illness INITIAL COMMENTS - FREE TEXT/NARRATIVE: 34-year-old female presents to the ED with a generalized severe headache. She states it came on last night while she was listing to a pod cast at about 2200 hrs. Feels pain on both sides of her head as up is in a vice. Associated nausea but no vomiting. Constant throbbing pounding headache. Teeth she states she gets them about once or twice a year. No known triggers. She did not take anything for the headache as she was so nauseated. She has very photophobic. Noises are also louder than normal. Not appreciating any malfunction of her nervous system. Denies any possibility of . Onset: Sudden Onset Date: 03/12/20 Onset Time: 22:00 Duration: Hour(s):, Constant Location: Reports: Head Quality: Reports: Other (Is pain both sides of her head as if it is in a vice and being squeezed. Pressure behind both eyes with associated photophobia. Severe headache) Severity: Severe Improves with: Reports: Rest Worsens with: Reports: Other (In dark room.) Context: Reports: Other (Spontaneous occurrence). Denies: Activity (Is with movement and exposure to light and noises.), Exercise, Lifting, Sick Contact, Trauma Associated Symptoms: Reports: Headaches, Loss of Appetite, Malaise, Nausea/Vomiting. Denies: Confusion, Fever/Chills (Nausea without vomiting), Rash, Seizure, Shortness of Breath, Syncope, Weakness Treatments MAINTENANCE CHIEF: Reports: Other (see below) (None.) Headache Pain Score (Numeric/FACES): 10 - Related Data Allergies Allergy/AdvReac Type Severity Reaction Status Date / Time Sulfa (Sulfonamide Allergy Nausea Verified 03/13/20 07:40 Antibiotics) oral contraceptive Allergy Headache Uncoded 03/13/20 07:40 Home Meds: Home Meds . 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: Polycystic Ovaries, Musculoskeletal History: Reports: Arthritis, Other (See Below) Other Musculoskeletal History: Ligament repair in ankle 2007 Psychiatric History: Reports: Anxiety, Depression, PTSD - Infectious Disease History Infectious Disease History: Reports: Influenza - Past Surgical History HEENT Surgical History: Reports: None Social & Family History - Family History Family Medical History: Noncontributory - Caffeine Use Caffeine Use: Reports: Coffee Other Caffeine Use: occasional - Living Situation & Occupation Living situation: Reports: Occupation: Employed ED ROS GENERAL - Review of Systems Review Of Systems: See Below Constitutional: Reports: Fatigue (Not sleeping well.). Denies: Fever, Chills, Malaise, Weakness HEENT: Reports: Other Respiratory: Reports: No Symptoms (Photophobia) Cardiovascular: Reports: No Symptoms Endocrine: Reports: No Symptoms GI/Abdominal: Reports: Nausea. Denies: Vomiting : Reports: No Symptoms Musculoskeletal: Reports: No Symptoms Skin: Reports: No Symptoms Neurological: Reports: Headache. Denies: Paresthesia, Pre-Existing Deficit, Seizure, Syncope, Tingling, Trouble Speaking, Difficulty Walking, Weakness Psychiatric: Reports: No Symptoms Hematologic/Lymphatic: Reports: No Symptoms Immunologic: Reports: No Symptoms - Physical Exam Exam: See Below Exam Limited By: No Limitations General Appearance: Alert, WD/WN, Moderate Distress, Other (Senior in a darkened room as she is quite photophobic. Vital signs temperature 36.1 with a pulse of 81. Respiratory of 18 sats 98% on room air BP 123/88.) Eye Exam: Bilateral Eye: Normal Inspection, PERRL Throat/Mouth: Normal Inspection, Normal Lips, Normal Oropharynx, Other Head Exam: Atraumatic, Normocephalic Neck: Normal Inspection, Supple, Non-Tender, Full Range of Motion. No: Lymphadenopathy (L), Lymphadenopathy (R) Neuro Exam (Abbreviated): Alert, Oriented, CN II-XII Intact, Normal Cognition, Other (No pronator drift. Normal rapid alternating movements. No upper extremity or lower extremity motor power and tone weakness.) Extremities: Normal Inspection, Normal Range of Motion, Non-Tender, No Pedal Edema Psychiatric: Flat Affect, Other (In pain from headache.) Skin Exam: Warm, Dry, Intact, Normal Color, No Rash Course - Vital Signs Last Recorded V/S: Last Vital Signs Temp 36.1 C 03/13/20 07:37 Pulse 81 03/13/20 07:37 Resp 18 03/13/20 07:37 BP 123/88 03/13/20 07:37 Pulse Ox 98 03/13/20 07:37 - Orders/Labs/Meds Orders: Active Orders 24 hr Category Date Time Status Dextrose 5%-0.9% NaCl [Dextrose 5%-Normal Saline] 1,000 Med 03/13/20 08:00 Active ml IV ASDIRECTED Ketorolac [Toradol] Med 03/13/20 08:00 Active 30 mg IVPUSH ONETIME Medication Orders Dextrose/Sodium Chloride (Dextrose 5%-Normal Saline) 1,000 mls @ 999 mls/hr IV ASDIRECTED EBONY Last Admin: 03/13/20 08:14 Dose: 999 mls/hr Documented by: CASSIE Ketorolac Tromethamine (Toradol) 30 mg IVPUSH ONETIME EBONY Last Admin: 03/13/20 08:09 Dose: 30 mg Documented by: CASSIE Meds: Medications Generic Name Dose Route Start Last Admin Trade Name Freq PRN Reason Stop Dose Admin Dextrose/Sodium Chloride 1,000 mls @ 999 mls/hr 03/13/20 08:00 03/13/20 08:14 Dextrose 5%-Normal Saline IV 999 mls/hr ASDIRECTED EBONY Administration Ketorolac Tromethamine 30 mg 03/13/20 08:00 03/13/20 08:09 Toradol IVPUSH 30 mg ONETIME EBONY Administration Discontinued Medications Generic Name Dose Route Start Last Admin Trade Name Freq PRN Reason Stop Dose Admin Diphenhydramine HCl 25 mg 03/13/20 07:51 03/13/20 08:11 Benadryl IVPUSH 03/13/20 07:52 25 mg ONETIME ONE Administration Hydromorphone HCl 0.5 mg 03/13/20 07:51 03/13/20 08:13 Dilaudid IVPUSH 03/13/20 07:52 0.5 mg ONETIME ONE Administration Metoclopramide HCl 10 mg 03/13/20 07:51 03/13/20 08:07 Reglan IVPUSH 03/13/20 07:52 10 mg ONETIME ONE Administration - Radiology Interpretation Free Text/Narrative:: 34-year-old female presents to the ED with a migraine headache. It involves both sides of her head and feels like she is in a vice. Associated nausea without vomiting. Associated photophobia. Plan D5 normal saline IV at open. Given Toradol 30 mg IV with Reglan 10 mg IV and Dilaudid 0.5 mg IV. Benadryl 25 mg IV as well. - Re-Assessments/Exams Free Text/Narrative Re-Assessment/Exam: 03/13/20 09:02 patient has been sleeping pretty well over the last 45 minutes. When I woke her she states the headache is pretty well gone. No further nausea. She will therefore be discharged from the emergency department when she can find a suitable ride home. Suggest home to bed to sleep for the next couple of hours and then resume diet as able. Departure - Departure Time of Disposition: 09:05 Disposition: Home, Self-Care 01 Condition: Fair Clinical Impression: Migraine headache Qualifiers: Migraine type: without aura Status migrainosus presence: without status migrainosus Intractability: not intractable Qualified Code(s): G43.009 - Migraine without aura, not intractable, without status migrainosus - Discharge Information *PRESCRIPTION DRUG MONITORING PROGRAM REVIEWED*: Not Applicable *COPY OF PRESCRIPTION DRUG MONITORING REPORT IN PATIENT AQUILINO: Not Applicable Referrals: Karissa Dailey MD [Primary Care Provider] - Forms: ED Department Discharge Additional Instructions: Evaluation in the emergency room today in regards to development of a severe headache before going to bed last night which persisted throughout the night. Associated nausea without any vomiting. Severe photophobia or sensitivity to light appreciated. You were therefore treated with intravenous fluids D5 normal saline to provide rehydration. You were given medications Toradol 30 mg with Benadryl 25 mg and Reglan 10 mg and Dilaudid 0.5 mg for relief of headache and n ausea. Suggest home to bed to sleep for the next couple of hours and then resume regular diet as able. To medical care if you develop any further headaches within the next 72 hours. Sepsis Event Note (ED) - Evaluation Sepsis Screening Result: No Definite Risk - Focused Exam Vital Signs: Vital Signs Temp Pulse Resp BP Pulse Ox 03/13/20 07:37 36.1 C 81 18 123/88 98 - My Orders Last 24 Hours: My Active Orders 03/13/20 08:00 Dextrose 5%-0.9% NaCl [Dextrose 5%-Normal Saline] 1,000 ml IV ASDIRECTED Ketorolac [Toradol] 30 mg IVPUSH ONETIME - Assessment/Plan Last 24 Hours: My Active Orders 03/13/20 08:00 Dextrose 5%-0.9% NaCl [Dextrose 5%-Normal Saline] 1,000 ml IV ASDIRECTED Ketorolac [Toradol] 30 mg IVPUSH ONETIME
[2020-03-13] MEDS ORDERED: Ketorolac 30 MG/ML SDV IVPUSH SCH (08:00)
[2020-03-13] MEDS ORDERED: Dextrose 5%-0.9% NaCl 1,000 ML IV SCH (08:00)
== END 2020-03-13 09:20 | disposition home or self-care (01) ==
LOC: JD.ED 07:29
DX: G43.009 Migraine without aura, not intractable, without status migrainosus (principal); Z88.2 Allergy status to sulfonamides; Z88.8 Allergy status to other drugs, medicaments and biological substances
CPT/HCPCS: 96374; 96375; 99283; J1170; J1200; J1885; J2765; J7042

== ENCOUNTER 2021-02-05 04:40 | Inpatient (IN) | payer OTHER ==
[2021-02-05] MEDS ORDERED: Calcium Carbonate 500 MG Tab.Chew PO PRN (06:53)
[2021-02-05] MEDS ORDERED: Ondansetron 4 MG/2 ML SDV IVPUSH PRN (06:53)
[2021-02-05] MEDS ORDERED: Nalbuphine 10 MG/1 ML Vial IVPUSH PRN (06:53)
[2021-02-05] MEDS ORDERED: Acetaminophen 325 MG Tab PO PRN ×2 (06:53→17:54)
[2021-02-05] MEDS ORDERED: Sodium Chloride 0.9% 10 ML Syringe FLUSH PRN (06:53)
[2021-02-05] MEDS ORDERED: Oxytocin/Lactated Ringers 10 UNIT/1,000 ML BAG IV SCH ×3 (07:00→17:54)
[2021-02-05] MEDS ORDERED: Lactated Ringers 1,000 ML IV SCH (07:00)
--- NOTE | 2021-02-05 07:42 | PCM.LDHP ---
L&D History of Present Illness - General Date of Service: 02/05/21 Admit Problem/Dx: Patient Status Order with Admit Dx/Problem 02/05/21 06:53 Patient Status [ADT] Routine Admission Diagnosis/Problem Admission Diagnosis/Problem Source of Information: Patient History Limitations: Reports: No Limitations - History of Present Illness Introduction:: Bárbara Trejo is a 35-year-old -0-0-3 female at 39 weeks 4 days (HERMINIA 02/08/2021) by a 7-week ultrasound who presents with regular contractions that started this morning. She states that she started to have contractions that were about every 3 to 4 minutes starting at around 3:30 AM and were strong enough to wake her up from sleeping. The contractions continued throughout the morning and spaced out a little bit to about 5 minutes and when she got to the hospital they slowed down and pretty much stopped at that time. After about an hour they restarted and were about every 2 to 4 minutes at that time. Her contractions were lasting about a minute at a time. She denies any vaginal bleeding or leaking of fluid. She reports that she has had slightly decreased movement with these contractions. She did have a migraine with some spots in her vision last evening but nothing that persisted throughout the night. Timing/Duration: Reports: intermittent (Contractions every 2 to 5 minutes that were lasting for about 1 minute at a time) Location, : Reports: Pelvic, Uterus Quality: Reports: Pressure, Throbbing Severity: Moderate Associated Symptoms: Denies: vaginal bleeding, vaginal discharge, vaginal fluid Present Illness Comments:: Bárbara Trejo is a 35-year-old -0-0-3 female at 39 weeks 4 days (HERMINIA 02/08/2021) by a 7-week ultrasound who presents with cervical change in the setting of recurrent contractions that started this morning. Patient has had routine care with Dr. Chand starting at 7 weeks gestational age. She denies any problems during this . She received Tdap vaccine on 12/11/2020. Patient has care with Dr. 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 labs Blood type: A+ Antibody screen: Negative First trimester hematocrit/hemoglobin: 38.5%/12.8 on 07/20/2020 Platelets: 211 on 07/20/2020 Rubella status: Immune Hepatitis B surface antigen: Negative RPR: Negative Hepatitis C: Negative HIV: Negative Gonorrhea: Negative Chlamydia: Negative One hour glucose tolerance test: 119 Second trimester hematocrit/hemoglobin: 11.4 on 10/19/2020 Platelets: 220 on 10/19/2020 GBS status: Negative - Related Data Allergies/Adverse Reactions: Allergies Allergy/AdvReac Type Severity Reaction Status Date / Time Sulfa (Sulfonamide Allergy Nausea Verified 02/05/21 05:38 Antibiotics) oral contraceptive Allergy Headache Uncoded 03/13/20 07:40 Home Medications: Home Meds Calcium Carbonate [Antacid Ultra Strength] 420 mg PO DAILY PRN 02/05/21 [History] Famotidine [Pepcid] 20 mg PO DAILY 02/05/21 [History] Vits #93/Iron Fum/FA [ Formula Tablet] 1 tab PO DAILY 02/05/21 [History] Past Medical History HEENT History: Reports: None 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, : 4 Para: 3 Musculoskeletal History: Reports: Arthritis, Other (See Below) Other Musculoskeletal History: Ligament repair in ankle 2006 Psychiatric History: Reports: Anxiety, Depression, PTSD - Infectious Disease History Infectious Disease History: Reports: Influenza - Past Surgical History HEENT Surgical History: Reports: None Respiratory Surgical History: Reports: Other (See Below) (Chest tube placement) Musculoskeletal Surgical History: Reports: Other (See Below) (Ankle procedure) Social & Family History - Family History Family Medical History: No Pertinent Family History - Tobacco Use Tobacco Use Status *Q: Former Tobacco User Tobacco Use Within Last Twelve Months: No - Tobacco Core Measures Tobacco Use/Smoking Within Last 30 Days: No Smokeless Tobacco Use in Last 30 Days: No - Caffeine Use Caffeine Use: Reports: Coffee Other Caffeine Use: occasional - Alcohol Use Alcohol Use History: No - Recreational Drug Use Recreational Drug Use: No Drug Use in Last 12 Months: No - Living Situation & Occupation Living situation: Reports: Occupation: Employed H&P Review of Systems - Review of Systems: Review Of Systems: See Below General: Denies: Fever, Chills, Malaise, Weakness, Fatigue HEENT: Denies: Headaches, Rhinitis, Post Nasal Drip, Sinus Congestion, Sore Throat, Visual Changes Pulmonary: Denies: Shortness of Breath, Wheezing, Pleuritic Chest Pain, Cough Cardiovascular: Denies: Chest Pain, Palpitations, Dyspnea on Exertion, Orthopnea Gastrointestinal: Denies: Abdominal Pain, Constipation, Diarrhea, Nausea, Vomiting Genitourinary: Denies: Dysuria, Frequency, Burning, Pain, Urgency Musculoskeletal: Reports: Back Pain (And hip pain of ) Skin: Denies: Rash, Lesions Psychiatric: Denies: Depression, Anxiety L&D Exam - Exam Exam: See Below - Vital Signs Vital Signs: Last Vital Signs Temp 36.3 C 02/05/21 04:59 Pulse 82 02/05/21 04:59 Resp 16 02/05/21 04:59 BP 122/71 02/05/21 04:59 Pulse Ox 98 02/05/21 04:59 Weight: 127.545 kg - OB Specific Contraction Duration (sec): 45-60 Contraction Frequency (min): 2-4 Contraction Intensity: Moderate to Strong Movement: Active Heart Tones: Present Heart Tones per Min: 135 (+15 x 15 accelerations, no decelerations) Heart Rate (FHR) Variability: Moderate (6-25 bmp) Presentation: Vertex Estimated Weight: 8-8.5 pounds by Sergio - Yi Score Yi Score Cervix Position: Anterior Yi Score Consistency: Soft Yi Score Effacement: >80% (80%) Yi Score Dilation: > 5 cm (5 cm) Yi Score 's Station: -2 Yi Score Total: 11 - Exam General: Alert, Oriented HEENT: Conjunctiva Clear, EOMI Neck: Supple, Trachea Midline Lungs: Clear to Auscultation, Normal Respiratory Effort Cardiovascular: Regular Rate, Regular Rhythm GI/Abdominal Exam: Soft, Non-Tender, No Distention, Other (Gravid). No: Guarding, Rigid, Rebound Genitourinary: Normal external exam Extremities: Normal Inspection, Non-Tender, No Pedal Edema Skin: Warm, Dry, Intact Psychiatric: Alert, Normal Affect, Normal Mood - Problem List (1) 39 weeks gestation of SNOMED Code(s): 33973998 ICD Code: Z3A.39 - 39 WEEKS GESTATION OF Status: Acute Current Visit: Yes (2) Polycystic ovarian syndrome SNOMED Code(s): 842193148 ICD Code: E28.2 - POLYCYSTIC OVARIAN SYNDROME Status: Acute Current Visit: Yes Problem List Initiated/Reviewed/Updated: Yes Orders Last 24hrs: Active Orders 24 hr Category Date Time Status Patient Status [ADT] Routine ADT 02/05/21 06:53 Active Activity as Tolerated [RC] PFP Care 02/05/21 06:53 Active Communication Order [RC] ASDIRECTED Care 02/05/21 06:53 Active Heart Tones [RC] ASDIRECTED Care 02/05/21 06:54 Active Non Stress Test [RC] PER UNIT ROUTINE Care 02/05/21 04:50 Active Notify Provider [RC] PFP Care 02/05/21 06:53 Active Notify Provider [RC] PRN Care 02/05/21 06:53 Active Peripheral IV Care [RC] . DIRECTED Care 02/05/21 06:54 Active Vital Signs [RC] PER UNIT ROUTINE Care 02/05/21 04:50 Active Regular Diet [DIET] Diet 02/05/21 Breakfast Active CBC WITH AUTO DIFF [HEME] Stat Lab 02/05/21 07:10 Received CORONAVIRUS COVID-19 NATHAN [MOLEC] Stat Lab 02/05/21 07:12 Received RAPID PLASMA REAGIN,RPR [CHEM] Routine Lab 02/05/21 07:10 Received TYPE AND SCREEN [BBK] Stat Lab 02/05/21 07:10 Received Acetaminophen [TylenoL] Med 02/05/21 06:53 Active 650 mg PO Q4H PRN Calcium Carbonate [Tums] Med 02/05/21 06:53 Active 1,000 mg PO Q2H PRN Lactated Ringers [Ringers, Lactated] 1,000 ml Med 02/05/21 07:00 Active IV ASDIRECTED Nalbuphine [Nubain] Med 02/05/21 06:53 Active 10 mg IVPUSH Q2H PRN Ondansetron [Zofran] Med 02/05/21 06:53 Active 4 mg IVPUSH Q4H PRN Oxytocin/Lactated Ringers [Pitocin in LR 10 Units/1,000 Med 02/05/21 07:00 Active ML] 10 unit in 1,000 ml IV .CONTINUOUS Sodium Chloride 0.9% [Saline Flush] Med 02/05/21 06:53 Active 10 ml FLUSH ASDIRECTED PRN Electronic Heart Tones Ext w TOCO [WOMSER] Oth 02/05/21 06:53 Ordered Routine Electronic Heart Tones Internal [WOMSER] Per Unit Oth 02/05/21 06:53 Ordered Routine Peripheral IV Insertion Adult [OM.PC] Routine Oth 02/05/21 06:53 Ordered Resuscitation Status Routine Resus Stat 02/05/21 04:50 Ordered Medication Orders Acetaminophen (Acetaminophen 325 Mg Tab) 650 mg PO Q4H PRN PRN Reason: Pain (Mild 1-3) and fever Calcium Carbonate/Glycine (Calcium Carbonate 500 Mg Tab.Chew) 1,000 mg PO Q2H PRN PRN Reason: Indigestion Lactated Ringer's (Ringers, Lactated) 1,000 mls @ 100 mls/hr IV ASDIRECTED EBONY Oxytocin/Lactated Ringer's (Pitocin In Lr 10 Units/1,000 Ml) 10 unit in 1,000 mls @ 500 mls/hr IV .CONTINUOUS EBONY Nalbuphine HCl (Nalbuphine 10 Mg/1 Ml Vial) 10 mg IVPUSH Q2H PRN PRN Reason: Pain Ondansetron HCl (Ondansetron 4 Mg/2 Ml Sdv) 4 mg IVPUSH Q4H PRN PRN Reason: Nausea/Vomiting Sodium Chloride (Sodium Chloride 0.9% 10 Ml Syringe) 10 ml FLUSH ASDIRECTED PRN PRN Reason: Keep Vein Open Assessment/Plan Comment:: Bárbara Trejo is a 35-year-old -0-0-3 female at 39 weeks 4 days (HERMINIA 02/08/2021) with spontaneous labor with cervical change on labor and delivery Patient underwent artificial rupture of membranes on labor and delivery at around 7:50 AM with return of small amount of clear fluid mixed with light bleeding. No bright red active bleeding noted. Mother and tolerated pro cedure without difficulty. Refer to observation for spontaneous labor with cervical change Continuous monitoring Place IV and have Lactated Ringer's at 125 ml/hr May have small amounts of regular diet Activity as tolerated May have epidural as desired Anticipate vaginal delivery unless otherwise indicated Girish Walls MD 7:52 AM 02/05/2021
[2021-02-05] MEDS ORDERED: Hydrocortisone Acetate 25 MG Supp RECTAL PRN (17:54)
[2021-02-05] MEDS ORDERED: Benzocaine/Menthol 20%-0.5% Spray 56 GM Canister TOP PRN (17:54)
[2021-02-05] MEDS ORDERED: Magnesium Hydroxide 400 MG/5 ML Susp 30 ML Cup PO PRN (17:54)
[2021-02-05] MEDS ORDERED: Docusate Sodium 100 MG Cap PO PRN (17:54)
[2021-02-05] MEDS ORDERED: Witch Hazel Medicated Pads 40/Jar TOP PRN (17:54)
[2021-02-05] MEDS ORDERED: Ibuprofen 600 MG Tab PO PRN (17:54)
--- NOTE | 2021-02-05 17:57 | PCM.DEL ---
L & D Note - General Info Date of Service: 02/05/21 Mother's Due Date: 02/08/21 - Delivery Note Labor: Spontaneous, Augmented by ARM, Augmented by Oxytocin Delivery Outcome: Livebirth Delivery Method: Spontaneous Vaginal Delivery-Single Presentation: Right Occiput Anterior (DANILO) Nuchal Cord: Present (x2), Reduced (Prior to delivery of the ) Anesthesia Type: None Amniotic Fluid Description: Bloody (on initial rupture of membranes but clear on additional monitoring) Episiotomy Type: None Laceration: 1st Degree (midline perineal, hemostatic and not repaired) Placenta: Intact, Spontaneous Cord: 3 Vessels Estimated Blood Loss: 150 Resuscitation Needed: Yes [place]: Bulb Syringe, Stimulated, Warmed, [place] Used Provider: Corey López Score 1 min: 8 Score 5 min: 9 Second Stage Interventions: Reports: Pushing Effectively, Pushing, Stirrups/Leg Supports Delivery Comments (Free Text/Narrative):: Stage I: Bárbara Trejo was admitted for spontaneous labor. On admission her cervix was dilated to 3 cm and after several hours she changed to 4 cm. She was GBS negative. Over the course of an additional hour she changed to 5 cm and had artificial rupture of membranes with return of small amount of blood stained fluid initially with clear fluid for the remainder of the labor. She continued to make slow progress with irregular contractions after artificial rupture of membranes. She was started on Pitocin for augmentation of labor. She progressed to complete and pushing. Stage II: On 02/05/2021 she had a normal vaginal delivery of a live female infant at 17:14. Apgars of 8 & 9. Weight of 3420 g (7 lbs 8.6 oz). There was a double nuchal cord that was reduced prior to delivery. Infant was delivered in DANILO position. The cord was doubly clamped and cut by myself. Infant was placed on mother's abdomen. Stage III: She had a spontaneous delivery of an intact placenta in Babita presentation. Three vessel cord. She was given pitocin and fundal massage. She had a first-degree midline perineal laceration that was hemostatic and not repaired. Mom and baby were stable to recovery. EBL of 150 mL. Girish Walls MD 5:55 PM 02/05/2021 - General Info Date of Service: 02/05/21 - Patient Data Vitals - Most Recent: Last Vital Signs Temp 36.3 C 02/05/21 04:59 Pulse 82 02/05/21 04:59 Resp 16 02/05/21 04:59 BP 122/71 02/05/21 04:59 Pulse Ox 98 02/05/21 04:59 Weight - Most Recent: 127.596 kg I&O - Last 24 Hours: Intake & Output 02/05/21 02/05/21 02/05/21 06:59 14:59 22:59 Intake Total 0 Balance 0 Lab Results Last 24 Hours: Laboratory Results - last 24 hr 02/05/21 02/05/21 02/05/21 Range/Units 07:10 07:10 07:12 WBC 6.86 (3.98-10.04) K/mm3 RBC 3.96 L (3.98-5.22) M/mm3 Hgb 11.6 (11.2-15.7) gm/dl Hct 36.0 (34.1-44.9) % MCV 90.9 D (79.4-94.8) fl MCH 29.3 (25.6-32.2) pg MCHC 32.2 (32.2-35.5) g/dl RDW Std Deviation 51.9 H (36.4-46.3) fL Plt Count 199 (182-369) K/mm3 MPV 10.9 (9.4-12.3) fl Neut % (Auto) 59.3 (34.0-71.1) % Lymph % (Auto) 32.8 (19.3-51.7) % [place] % (Auto) 6.7 (4.7-12.5) % Eos % (Auto) 1.0 (0.7-5.8) Baso % (Auto) 0.1 (0.1-1.2) % Neut # (Auto) 4.06 (1.56-6.13) K/mm3 Lymph # (Auto) 2.25 (1.18-3.74) K/mm3 [place] # (Auto) 0.46 H (0.24-0.36) K/mm3 Eos # (Auto) 0.07 (0.04-0.36) K/mm3 Baso # (Auto) 0.01 (0.01-0.08) K/mm3 SARS-CoV-2 RNA (NATHAN) Negative (NEGATIVE) Blood Type A POSITIVE Gel Antibody Screen Negative Med Orders - Current: Current Medications Acetaminophen (Acetaminophen 325 Mg Tab) 650 mg PO Q4H PRN PRN Reason: Pain (Mild 1-3) and fever Calcium Carbonate/Glycine (Calcium Carbonate 500 Mg Tab.Chew) 1,000 mg PO Q2H PRN PRN Reason: Indigestion Lactated Ringer's (Ringers, Lactated) 1,000 mls @ 100 mls/hr IV ASDIRECTED EBONY Last Admin: 02/05/21 14:02 Dose: 100 mls/hr Documented by: Oxytocin/Lactated Ringer's (Pitocin In Lr 10 Units/1,000 Ml) 10 unit in 1,000 mls @ 500 mls/hr IV .CONTINUOUS EBONY Oxytocin/Lactated Ringer's (Pitocin In Lr 10 Units/1,000 Ml) 10 unit in 1,000 mls @ 12 mls/hr IV TITRATE EBONY; Protocol Last Titration: 02/05/21 16:04 Dose: 10 munits/min, 60 mls/hr Documented by: Nalbuphine HCl (Nalbuphine 10 Mg/1 Ml Vial) 10 mg IVPUSH Q2H PRN PRN Reason: Pain Last Admin: 02/05/21 17:01 Dose: 5 mg Documented by: Ondansetron HCl (Ondansetron 4 Mg/2 Ml Sdv) 4 mg IVPUSH Q4H PRN PRN Reason: Nausea/Vomiting Sodium Chloride (Sodium Chloride 0.9% 10 Ml Syringe) 10 ml FLUSH ASDIRECTED PRN PRN Reason: Keep Vein Open - Problem List & Annotations (1) 39 weeks gestation of SNOMED Code(s): 90363969 Code(s): Z3A.39 - 39 WEEKS GESTATION OF Status: Acute Current Visit: Yes (2) Polycystic ovarian syndrome SNOMED Code(s): 014745560 Code(s): E28.2 - POLYCYSTIC OVARIAN SYNDROME Status: Acute Current Visit: Yes (3) Vaginal delivery SNOMED Code(s): 434731250 Code(s): O80 - ENCOUNTER FOR FULL-TERM UNCOMPLICATED DELIVERY Status: Acute Current Visit: Yes (4) First degree perineal laceration during delivery SNOMED Code(s): 539998623 Code(s): O70.0 - FIRST DEGREE PERINEAL LACERATION DURING DELIVERY Status: Acute Current Visit: Yes - Problem List Review Problem List Initiated/Reviewed/Updated: Yes - My Orders Last 24 Hours: My Active Orders 02/05/21 04:50 Vital Signs [RC] PER UNIT ROUTINE Resuscitation Status Routine 02/05/21 06:53 Patient Status [ADT] Routine Activity as Tolerated [RC] PFP Communication Order [RC] ASDIRECTED Notify Provider [RC] PFP Notify Provider [RC] PRN Acetaminophen [TylenoL] 650 mg PO Q4H PRN Calcium Carbonate [Tums] 1,000 mg PO Q2H PRN Nalbuphine [Nubain] 10 mg IVPUSH Q2H PRN Ondansetron [Zofran] 4 mg IVPUSH Q4H PRN Sodium Chloride 0.9% [Saline Flush] 10 ml FLUSH ASDIRECTED PRN Electronic Heart Tones Ext w TOCO [WOMSER] Routine Electronic Heart Tones Internal [WOMSER] Per Unit Routine Peripheral IV Insertion Adult [OM.PC] Routine 02/05/21 06:54 Heart Tones [RC] ASDIRECTED Peripheral IV Care [RC] . DIRECTED 02/05/21 Breakfast Regular Diet [DIET] Lactated Ringers [Ringers, Lactated] 1,000 ml IV ASDIRECTED Oxytocin/Lactated Ringers [Pitocin in LR 10 Units/1,000 ML] 10 unit in 1,000 ml IV .CONTINUOUS 02/05/21 07:10 RAPID PLASMA REAGIN,RPR [CHEM] Routine 02/05/21 07:53 PATIENT RETYPE [BBK] Routine 02/05/21 13:45 Oxytocin/Lactated Ringers [Pitocin in LR 10 Units/1,000 ML] 10 unit in 1,000 ml IV TITRATE 02/05/21 17:34 Patient Status Manage Transfer [TRANSFER] Routine - Plan Plan:: Bárbara Trejo is a 35-year-old G4 now P4-0-0-4 female status post , PPD #0, complicated by advanced maternal age and history of polycystic ovarian syndrome Admit to inpatient following normal spontaneous vaginal delivery Continue Pitocin per unit protocol following delivery of placenta and lactated Ringer's until tolerating regular diet Regular diet Vitals per unit routine Ibuprofen and Tylenol for pain control Assist with breast-feeding as needed Continue to monitor lochia Anticipate discharge home on day #1 if is stable for discharge Girish Walls MD 5:55 PM 02/05/2021
[2021-02-06] MEDS ORDERED: Prenatal Multivitamin with Calcium/Folic Acid/Iron Tab PO SCH (09:00)
--- NOTE | 2021-02-06 14:02 | PCM.DCSUM1 ---
Discharge Summary - Hospital Course Free Text/Narrative:: Stage I: Bárbara Trejo was admitted for spontaneous labor. On admission her cervix was dilated to 3 cm and after several hours she changed to 4 cm. She was GBS negative. Over the course of an additional hour she changed to 5 cm and had artificial rupture of membranes with return of small amount of blood stained fluid initially with clear fluid for the remainder of the labor. She continued to make slow progress with irregular contractions after artificial rupture of membranes. She was started on Pitocin for augmentation of labor. She progressed to complete and pushing. Stage II: On 02/05/2021 she had a normal vaginal delivery of a live female infant at 17:14. Apgars of 8 & 9. Weight of 3420 g (7 lbs 8.6 oz). There was a double nuchal cord that was reduced prior to delivery. Infant was delivered in DANILO position. The cord was doubly clamped and cut by myself. Infant was placed on mother's abdomen. Stage III: She had a spontaneous delivery of an intact placenta in Babita presentation. Three vessel cord. She was given pitocin and fundal massage. She had a first-degree midline perineal laceration that was hemostatic and not repaired. Mom and baby were stable to recovery. EBL of 150 mL. patient has done well. Her vital signs stable. She is afebrile. She is nursing without problems, has minimal lochia, is ambulating well and has no concerns. She is desiring discharge home. Diagnosis: Stroke: No - Discharge Data Discharge Date: 02/06/21 Discharge Disposition: Home, Self-Care 01 Condition: Good - Referral to Home Health Primary Care Physician: Misty Chand MD - Patient Instructions Diet: Regular Diet as Tolerated (Nursing diet with increased calories and calcium as recommended) Activity: As Tolerated (No intercourse or tampons until bleeding resolves) Driving: May Drive Today Showering/Bathing: May Shower (May take a bath) Notify Provider of: Fever, Increased Pain, Swelling and Redness, Nausea and/or Vomiting - Discharge Plan Home Medications: Home Meds Calcium Carbonate [Antacid Ultra Strength] 420 mg PO DAILY PRN 02/05/21 [History] Vits #93/Iron Fum/FA [ Formula Tablet] 1 tab PO DAILY 02/05/21 [History] Acetaminophen [Tylenol] 650 mg PO Q6H PRN tablet 02/06/21 [Rx] Ibuprofen [Motrin] 600 mg PO Q6H PRN tablet 02/06/21 [Rx] Referrals: Isael Crespo MD [Physician] - (RTC 2 weeks-Dr. Walls.) - Discharge Summary/Plan Comment DC Time >30 min.: No Discharge Summary/Plan Comment: Discharge instructions: 1. Discharge home 2. Diet, activity and follow-up discussed with patient. Recommend nursing diet with increased calories and calcium. 3. Precautions given concern increased pain, bleeding, temperature, signs/symptoms of DVT/PE. 4. Medications per home medication was printed, discussed with and given to the patient. 5. Return to clinic-Dr. Walls[facility] in 2 weeks. Diagnosis: Term -delivered Condition: Good - Patient Data Vitals - Most Recent: Last Vital Signs Temp 36.4 C 02/06/21 08:24 Pulse 77 02/06/21 08:24 Resp 14 02/06/21 08:24 BP 124/63 02/06/21 08:24 Pulse Ox 96 02/06/21 08:24 Weight - Most Recent: 127.596 kg I&O - Last 24 hours: Intake & Output 02/05/21 02/06/21 02/06/21 22:59 06:59 14:59 Intake Total 1400 320 Output Total 182 Balance 1218 320 Lab Results - Last 24 hrs: Laboratory Results - last 24 hr 02/05/21 Range/Units 07:10 RPR Non-reactive (NONREACTIVE) Med Orders - Current: Current Medications Acetaminophen (Acetaminophen 325 Mg Tab) 650 mg PO Q6H PRN PRN Reason: mild pain or fever Last Admin: 02/06/21 08:21 Dose: 650 mg Documented by: Benzocaine/Menthol (Benzocaine/Menthol 20%-0.5% [place] 56 Gm Canister) 0 gm TOP ASDIRECTED PRN PRN Reason: Perineal Comfort Measure Last Admin: 02/05/21 18:28 Dose: 1 can Documented by: Docusate Sodium (Docusate Sodium 100 Mg Cap) 100 mg PO BID PRN PRN Reason: Constipation Hydrocortisone Acetate (Hydrocortisone Acetate 25 Mg Supp) 25 mg RECTAL BID PRN PRN Reason: Hemorrhoid pain Oxytocin/Lactated Ringer's (Pitocin In Lr 10 Units/1,000 Ml) 10 unit in 1,000 mls @ 100 mls/hr IV TITRATE EBONY; Protocol Ibuprofen (Ibuprofen 600 Mg Tab) 600 mg PO Q6H PRN PRN Reason: Mild pain or fever Last Admin: 02/06/21 00:36 Dose: 600 mg Documented by: Magnesium Hydroxide (Magnesium Hydroxide 400 Mg/5 Ml Susp 30 Ml Cup) 30 ml PO BEDTIME PRN PRN Reason: Constipation Prenat Multivit/[place]/Iron/Folic Ac ( Multivitamin With Calcium/Folic Acid/Iron Tab) 1 each PO DAILY EBONY Last Admin: 02/06/21 08:21 Dose: 1 each Documented by: Mannie Ace (Mannie Ace Medicated Pads 40/Jar) 1 pad TOP ASDIRECTED PRN PRN Reason: Perineal Comfort Measure Last Admin: 02/05/21 18:28 Dose: 1 tub Documented by: Discontinued Medications Acetaminophen (Acetaminophen 325 Mg Tab) 650 mg PO Q4H PRN PRN Reason: Pain (Mild 1-3) and fever Calcium Carbonate/Glycine (Calcium Carbonate 500 Mg Tab.Chew) 1,000 mg PO Q2H PRN PRN Reason: Indigestion Lactated Ringer's (Ringers, Lactated) 1,000 mls @ 100 mls/hr IV ASDIRECTED EBONY Last Admin: 02/05/21 14:02 Dose: 100 mls/hr Documented by: Oxytocin/Lactated Ringer's (Pitocin In Lr 10 Units/1,000 Ml) 10 unit in 1,000 mls @ 500 mls/hr IV .CONTINUOUS EBONY Oxytocin/Lactated Ringer's (Pitocin In Lr 10 Units/1,000 Ml) 10 unit in 1,000 mls @ 12 mls/hr IV TITRATE EBONY; Protocol Last Titration: 02/05/21 16:04 Dose: 10 munits/min, 60 mls/hr Documented by: Nalbuphine HCl (Nalbuphine 10 Mg/1 Ml Vial) 10 mg IVPUSH Q2H PRN PRN Reason: Pain Last Admin: 02/05/21 17:01 Dose: 5 mg Documented by: Ondansetron HCl (Ondansetron 4 Mg/2 Ml Sdv) 4 mg IVPUSH Q4H PRN PRN Reason: Nausea/Vomiting Sodium Chloride (Sodium Chloride 0.9% 10 Ml Syringe) 10 ml FLUSH ASDIRECTED PRN PRN Reason: Keep Vein Open
[2021-02-06 15:57] VITALS: BP 114/72; PULSE 74
== END 2021-02-06 18:19 | disposition home or self-care (01) | DRG 807 ==
LOC: JD.OB 04:40 → JD.OBCHECK 04:40 → JD.OB 06:53 → JD.OBCHECK 06:53 → OBSVTOIN 17:14 → JD.OB 21:26
PROVIDERS: ADMIT Obstetrics & Gynecology; ATTEND Obstetrics & Gynecology
PROC: 10E0XZZ Delivery of Products of Conception, External Approach (ICD-10-PCS; principal; 2021-02-05)
PROC: 10907ZC Drainage of Amniotic Fluid, Therapeutic from Products of Conception, Via Natural or Artificial Opening (ICD-10-PCS; 2021-02-05)
PROC: 0HQ9XZZ Repair Perineum Skin, External Approach (ICD-10-PCS; 2021-02-05)
DX: O99.284 Endocrine, nutritional and metabolic diseases complicating childbirth (principal); Z37.0 Single live birth; E28.2 Polycystic ovarian syndrome; O70.0 First degree perineal laceration during delivery; O69.81X0 Labor and delivery complicated by cord around neck, without compression, not applicable or unspecified; Z20.822 Contact with and (suspected) exposure to COVID-19; Z88.2 Allergy status to sulfonamides; Z88.8 Allergy status to other drugs, medicaments and biological substances; Z87.891 Personal history of nicotine dependence; Z3A.39 39 weeks gestation of pregnancy
CPT/HCPCS: 36415; 59025; 59409; 85025; 86592; 86850; 86900; 86901; A9270-GY; J2300; J2590; J7120; U0002